=== PATIENT | male | born 1960 | race African-American/Black ===

== ENCOUNTER 2017-11-26 08:40 | Emergency (ER) | payer MEDICAID ==
[~2017-11-26] VITALS: Ht 170.2 cm; Wt 64.0 kg
[2017-11-26] MEDS ORDERED: SODIUM CHLORIDE 0.9% 1,000 ML IV ONE (09:07)
[2017-11-26 09:45] LABS: HEMATOCRIT. 56.6 % (42.0-52.0); MEAN CORPUSCULAR HEMOGLOBIN 28.7 pg (28.0-32.0); MEAN CORPUSCULAR VOLUME 90.4 fL (80.0-94.0); MEAN PLATELET VOLUME 8.4 fl (7.4-10.4); PLATELET 408 x1000/uL (130-400); RED BLOOD CELL COUNT 6.25 mill/uL (4.7-6.1); RED CELL DISTRIBUTION WIDTH 13.9 % (11.6-14.6)
[2017-11-26 09:52] LABS: INR 1.1; PROTHROMBIN TIME 11.3 sec (9.4-11.6)
[2017-11-26 09:57] LABS: CHLORIDE 102 mEq/L (98-107)
[2017-11-26 10:06] LABS: TROPONIN I < 0.02 ng/mL (0.00-0.04)
[2017-11-26] MEDS ORDERED: SODIUM CHLORIDE 0.9% 1000ML BAG (SEPSIS BOLUS) IV ONE (10:15)
[2017-11-26 10:26] LABS: CREATINE KINASE 88 IU/L (39-308)
[2017-11-26 10:27] LABS: PLATELET ESTIMATE SLIGHTLY INCREASED
[2017-11-26 10:45] LABS: CLARITY URINE CLEAR (CLEAR); COLOR URINE YELLOW (YELLOW); KETONES URINE 4+ (NEGATIVE); LEUKOCYTE ESTERASE URINE NEGATIVE (NEGATIVE); NITRITE URINE NEGATIVE (NEGATIVE); OCCULT BLOOD URINE 1+ (NEGATIVE); PROTEIN URINE 1+ (NEGATIVE); SPECIFIC GRAVITY URINE 1.034 (1.005-1.030); UROBILINOGEN URINE 0.2 E.U./dL (0.2-1.0)
[2017-11-26] MEDS ORDERED: SODIUM CHLORIDE 0.9% 920 ML IV SCH (10:45)
[2017-11-26 10:55] LABS: BG BASE EXCESS -18.2 mmol/L (-2.0-2.0); BG CARBOXYHEMOGLOBIN 0.2 % (0.5-1.5); BG DEOXYHEMOGLOBIN 2.3 % (0.0-5.0); BG FRACTION INSPIRED OXYGEN 21; BG HCO3 ACT 7.2 mmol/L (22.0-26.0); BG METHEMOGLOBIN 0.6 % (0.0-1.5); BG OXYGEN SATURATION 97.7 % (92.0-98.5); BG OXYHEMOGLOBIN 96.9 % (94.0-97.0); BG PCO2 19.3 mmHg (35.0-45.0); BG PH 7.192 (7.350-7.450); BG PO2 122.4 mmHg (75.0-100.0); BG SAMPLE SITE RIGHT BRACHIAL; BG TOTAL HEMOGLOBIN 18.9 g/dL (12.0-18.0); BG VENT MODE ROOM AIR
[2017-11-26] MEDS ORDERED: INSULIN REGULAR (DRIP) 100 UNITS in SODIUM CHLORIDE 0.9% 100 ML IV ONE (10:55)
[2017-11-26 11:58] LABS: BETA HYDROXYBUTYRATE > 10.0 mMol/L (0.0-0.3)
[2017-11-26 12:08] LABS: PHOSPHORUS 5.9 mg/dL (2.5-4.9)
[2017-11-26 16:21] LABS: CHLORIDE 118 mEq/L (98-107)
[2017-11-26 17:28] VITALS: BP 127/81
== END 2017-11-26 17:30 | disposition left against medical advice (07) ==
LOC: ER 09:48 → CANBEDREQ 11-27 00:38
DX: E11.10 Type 2 diabetes mellitus with ketoacidosis without coma (principal); N17.9 Acute kidney failure, unspecified; E86.0 Dehydration; D72.825 Bandemia; E83.52 Hypercalcemia; I51.7 Cardiomegaly; R53.83 Other fatigue
CPT/HCPCS: 36415; 36600; 71045; 80048; 80053; 81003; 82010; 82375; 82550; 82805; 82962; 83605; 83690; 83735; 84100; 84484; 85025; 85610; 87040; 87086; 93005; 96361; 96365; 96366; 99291; J1815; J7030; Z7610; J7050